=== PATIENT | female | born 1940 | race Caucasian/White ===

== ENCOUNTER 2016-10-07 20:03 | Inpatient (IN) | payer OTHER ==
[~2016-10-07] VITALS: Ht 170.2 cm; Wt 74.3 kg
[~2016-10-07 20:03] MED LIST: ADVAIR 250/501 DISK IH; ALPRAZOLAM0.25 MG PO; Azulfidine PO; CALAN SR,COVER240 MG PO; CEFTIN500 MG PO; COUMADIN,JANTOVE2 MG PO; COUMADIN2 MG PO; COUMADIN3 MG PO; COUMADIN4 MG PO; CYANOCOBALAM1000 MCG PO; DIGITEK250 MC2 PO; ENBREL50 MG/1 ML SC; FEROSUL325 MG PO; FLOVENT 22120 INHALA IH; FLUOXETINE HCL20 MG PO; FOLIC ACID1 MG PO; FOLVITE0.5 MG PO; Folvite PO; LANOXIN,DIG0.0625 MG PO; LANOXIN250 MCG PO; LOVENOX100 MG/1 M SC; Lanoxin,Digitek PO; Lopressor PO; METHOTREXATE2.5 MG PO; METOPROLOL SUCC25 MG PO; METOPROLOL TART25 MG PO; MIRALAX17 GM PO; OMEPRAZOLE20 MG PO; OMEPRAZOLE40 M1 PO; OXECTA7.5 MG PO; OXYCODONE HCL5 M1 PO; OXYCODONE10 MG PO; PANTOPRAZOLE SO40 MG PO; PLAQUENIL200 MG PO; PREDNISONE1 MG PO; PREDNISONE5 MG PO; PRILOSEC20 MG PO; PRILOSEC40 MG PO; PROZAC40 MG PO; PROzac PO; Plaquenil PO; Protonix PO; Proventil,Ventolin H IH; ROXICODONE5 MG PO; SIMVASTATIN10 M1 PO; SIMVASTATIN20 MG PO; SUCRALFATE1 GM/10 ML PO; SULFASALAZINE500 MG PO; SULFAZINE500 MG PO; SUPER B WITH V1 EACH; Tylenol Regular Stre PO; VENTOLIN HFA18 GM IH; VERAPAMIL ER200 MG PO; VERAPAMIL HCL240 MG PO; VERELAN 180 MG180 MG PO; VITAMIN B-122500 MCG SL; VITAMIN B12-FO1 EACH PO; VITAMIN D2000 INTUN PO; VITAMIN D2000 UNIT PO; VITAMIN D32000 UNI1 PO; Vitamin D PO; WARFARIN SODIUM1 MG PO; WARFARIN SODIUM2 MG PO; WARFARIN SODIUM4 MG PO; XANAX0.5 MG PO; Xanax PO; ZOCOR20 MG PO; ZOLOFT50 MG PO; Zocor PO; [UNRECOGNIZED DRUG - OTHER] TP; advair; metoprolol; oxyCODONE PO; predniSONE PO; warfarin
[2016-10-07 20:34] LABS: EOSINOPHIL (%) 0.7 % (0-5); HEMATOCRIT 39.2 % (36.0-46.0); IMMATURE GRANULOCYTE (%) 0.2 % (0.0-0.7); INSTRUMENT ABS NEUTROPHIL CT 3.9 K/uL; LYMPHOCYTE COUNT 1.4 K/uL (1.0-2.8); MCH 26.3 PG (29.0-34.0); MCHC 31.1 G/DL (30.0-36.0); MCV 84.5 FL (83-99); MEAN PLAT.VOLUME 9.8 uM^3 (9.5-12.4); MONOCYTE (%) 6.3 % (3-12); MONOCYTE COUNT 0.4 K/uL (0-0.8); NEUTROPHIL (%) 68.6 % (45-76); NEUTROPHIL COUNT 3.9 K/uL (1.8-6.4); PLATELET COUNT 224 K/uL (156-360); RBC DIS.WIDTH-CV 14.8 % (11.8-14.6); RBC DIS.WIDTH-SD 45.2 % (39-53); RED BLOOD COUNT 4.64 M/uL (3.80-5.20); WHITE BLOOD COUNT 5.7 K/uL (4.1-10.2)
[2016-10-07 20:45] LABS: INTER. NORMALIZED RATIO 2.7; PROTHROMBIN TIME 31.2 SEC (10.2-12.9)
[2016-10-07 20:46] LABS: CHLORIDE 105 mEq/L (99-109); POTASSIUM 5.2 mEq/L (3.7-5.4); SODIUM 137 mEq/L (136-147)
[2016-10-07 20:48] LABS: GLUCOSE 147 mg/dL (70-99)
[2016-10-07 20:49] LABS: ANION GAP 12 MEQ/L (2-14)
[2016-10-07 20:50] LABS: TOTAL BILIRUBIN 0.4 mg/dL (0.0-1.0)
[2016-10-07 20:52] LABS: ALKALINE PHOSPHATASE 120 IU/L (3-129); GFR ESTIMATE (CALCULATED) > 59 mL/min/
[2016-10-07 20:53] LABS: UREA NITROGEN (BUN) 11 mg/dL (9-23)
[2016-10-07 20:57] LABS: TROP-I INTERPRETATION NEGATIVE; TROPONIN-I < 0.01 ng/mL (0.0-0.30)
[2016-10-07] MEDS ORDERED: COUMADIN2 MG PO (22:29)
[2016-10-07] MEDS ORDERED: AZITHROMYCIN250 MG1 PO (22:31)
[2016-10-07] MEDS ORDERED: VENTOLIN HFA18 GM IH (22:31)
[2016-10-07] MEDS ORDERED: PREDNISONE10 MG PO (22:31)
[2016-10-07] MEDS ORDERED: SYMBICORT60 INHALAT IH (22:31)
[2016-10-07] MEDS ORDERED: PROTONIX40 MG PO (22:32)
[2016-10-07] MEDS ORDERED: [UNRECOGNIZED DRUG - OTHER] (22:32)
[2016-10-07] MEDS ORDERED: LOSARTAN-HCTZ1 EAC1 PO (22:33)
[2016-10-07] MEDS ORDERED: ENBREL50 MG/1 ML SC (22:33)
[2016-10-07] MEDS ORDERED: PERCOCET 10/1 TABLET PO (22:33)
[2016-10-08] VITALS (7 sets, daily range): BP systolic 126–174; BP diastolic 78–100
[2016-10-08 02:48] LABS: TROP-I INTERPRETATION NEGATIVE; TROPONIN-I < 0.01 ng/mL (0.0-0.30)
[2016-10-08 08:50] LABS: TROP-I INTERPRETATION NEGATIVE; TROPONIN-I < 0.01 ng/mL (0.0-0.30)
[2016-10-08 09:01] LABS: ANION GAP 7 MEQ/L (2-14); CHLORIDE 106 MEQ/L (99-109); POTASSIUM 4.9 MEQ/L (3.7-5.4); SAMPLE HEMOLYSIS CHECK 1; SAMPLE ICTERIC CHECK 0; SAMPLE LIPEMIA CHECK 0; SODIUM 139 MEQ/L (136-147)
[2016-10-08 09:07] LABS: GFR ESTIMATE (CALCULATED) > 59 mL/min/; UREA NITROGEN (BUN) 10 mg/dL (9-23)
[2016-10-08 09:09] LABS: GLUCOSE 107 mg/dL (70-99)
[2016-10-08 09:44] LABS: INTER. NORMALIZED RATIO 2.6; PROTHROMBIN TIME 29.3 SEC (10.2-12.9)
[2016-10-09 04:00] VITALS: BP 164/93
[2016-10-09 05:59] LABS: INTER. NORMALIZED RATIO 2.7
[2016-10-09 07:40] VITALS: BP 186/93
[2016-10-09 11:14] VITALS: BP 147/89
[2016-10-09] MEDS ORDERED: METOPROLOL SUC100 MG PO (12:50)
[2016-10-09] MEDS ORDERED: CARDIZEM CD,CA240 MG PO (12:51)
[2016-10-09] MEDS ORDERED: TYLENOL REGULA325 MG PO (12:51)
[2016-10-09] MEDS ORDERED: DIOVAN160 MG PO (12:53)
== END 2016-10-09 14:30 | disposition home or self-care (01) | DRG 310 ==
LOC: EME 20:03 → EDOF 23:30 → 4EAST 23:30 → ENRESERV 23:43 → 4EAST 10-08 00:38
PROVIDERS: Emergency Medicine; Family Medicine Sports Medicine
DX: I48.2 Chronic atrial fibrillation (principal); R13.10 Dysphagia, unspecified; K22.2 Esophageal obstruction; J44.9 Chronic obstructive pulmonary disease, unspecified; I27.2 Other secondary pulmonary hypertension; I25.10 Atherosclerotic heart disease of native coronary artery without angina pectoris; E78.5 Hyperlipidemia, unspecified; M06.9 Rheumatoid arthritis, unspecified; I10 Essential (primary) hypertension; F41.9 Anxiety disorder, unspecified; E11.9 Type 2 diabetes mellitus without complications; K21.9 Gastro-esophageal reflux disease without esophagitis; Z79.01 Long term (current) use of anticoagulants; R09.02 Hypoxemia; I25.2 Old myocardial infarction; Z87.891 Personal history of nicotine dependence
CPT/HCPCS: 71010; 80048; 80053; 83880; 84484; 85025; 85610; 93005; 99202; 99281; 99285; J0360; J7050; J7512

== ENCOUNTER 2017-01-15 11:58 | Emergency (ER) | payer OTHER ==
[~2017-01-15] VITALS: Ht 170.2 cm; Wt 74.7 kg
[~2017-01-15 11:58] MED LIST changes: +AZITHROMYCIN250 MG1 PO; +CARDIZEM CD,CA240 MG PO; +DIOVAN160 MG PO; +LOSARTAN-HCTZ1 EAC1 PO; +METOPROLOL SUC100 MG PO; +PERCOCET 10/1 TABLET PO; +PREDNISONE10 MG PO; +PROTONIX40 MG PO; +SYMBICORT60 INHALAT IH; +TYLENOL REGULA325 MG PO; +[UNRECOGNIZED DRUG - OTHER]
[2017-01-15] MEDS ORDERED: PLAQUENIL200 MG PO (13:19)
[2017-01-15] MEDS ORDERED: METOPROLOL SUCC50 MG PO (13:22)
[2017-01-15] MEDS ORDERED: CLONAZEPAM0.5 MG PO (13:27)
[2017-01-15] MEDS ORDERED: ROBAXIN500 MG PO (13:28)
[2017-01-15] MEDS ORDERED: PROZAC20 MG PO (13:28)
[2017-01-15 14:11] LABS: HEMATOCRIT 36.4 % (36.0-46.0); MCH 27.9 PG (29.0-34.0); MCHC 31.6 G/DL (30.0-36.0); MCV 88.3 FL (83-99); PLATELET COUNT 213 K/uL (156-360); RBC DIS.WIDTH-CV 15.9 % (11.8-14.6); RBC DIS.WIDTH-SD 51.6 % (39-53); RED BLOOD COUNT 4.12 M/uL (3.80-5.20); WHITE BLOOD COUNT 8.6 K/uL (4.1-10.2)
[2017-01-15 14:20] LABS: D-DIMER ELISA < 150.00 ng/mLDDU (<230)
[2017-01-15 14:21] LABS: CHLORIDE 103 mEq/L (99-109); POTASSIUM 4.4 mEq/L (3.7-5.4); SODIUM 135 mEq/L (136-147)
[2017-01-15 14:23] LABS: GLUCOSE 93 mg/dL (70-99)
[2017-01-15 14:25] LABS: ANION GAP 7 MEQ/L (2-14)
[2017-01-15 14:27] LABS: GFR ESTIMATE (CALCULATED) > 59 mL/min/
[2017-01-15 14:28] LABS: UREA NITROGEN (BUN) 12 mg/dL (9-23)
[2017-01-15 14:33] LABS: TROP-I INTERPRETATION NEGATIVE; TROPONIN-I < 0.01 ng/mL (0.0-0.30)
[2017-01-15] MEDS ORDERED: LIDODERM 5% P1 PATCH TD (14:57)
[2017-01-15 15:20] VITALS: BP 108/83
== END 2017-01-15 15:20 | disposition home or self-care (01) ==
LOC: EME 11:58
PROVIDERS: Nurse Practitioner Family
DX: R09.1 Pleurisy (principal); M06.9 Rheumatoid arthritis, unspecified; J44.9 Chronic obstructive pulmonary disease, unspecified; F32.9 Major depressive disorder, single episode, unspecified; I25.2 Old myocardial infarction; F41.9 Anxiety disorder, unspecified; Z88.8 Allergy status to other drugs, medicaments and biological substances; Z87.891 Personal history of nicotine dependence
CPT/HCPCS: 71020; 80048; 84484; 85027; 85379; 93005; 99281; 99284

== ENCOUNTER 2017-07-28 12:05 | Emergency (ER) | payer OTHER ==
[~2017-07-28] VITALS: Ht 172.7 cm; Wt 81.5 kg
[~2017-07-28 12:05] MED LIST changes: +CLONAZEPAM0.5 MG PO; +LIDODERM 5% P1 PATCH TD; +METOPROLOL SUCC50 MG PO; +PROZAC20 MG PO; +ROBAXIN500 MG PO
[2017-07-28 12:41] LABS: HEMATOCRIT 41.2 % (36.0-46.0); HEMOGLOBIN 13.3 G/DL (11.9-15.5); MCH 28.9 PG (29.0-34.0); MCHC 32.3 G/DL (30.0-36.0); MCV 89.6 FL (83-99); PLATELET COUNT 278 K/uL (156-360); RBC DIS.WIDTH-CV 14.8 % (11.8-14.6); RBC DIS.WIDTH-SD 48.3 % (39-53); WHITE BLOOD COUNT 12.9 K/uL (4.1-10.2)
[2017-07-28 13:16] LABS: TROP-I INTERPRETATION NEGATIVE; TROPONIN-I < 0.01 ng/mL (0.0-0.30)
[2017-07-28 13:24] LABS: CHLORIDE 104 MEQ/L (99-109); CREATININE 0.9 MG/DL (0.6-1.3); GFR ESTIMATE (CALCULATED) > 59 mL/min/; GLUCOSE 110 mg/dL (70-99); POTASSIUM 4.4 MEQ/L (3.7-5.4); SODIUM 140 MEQ/L (136-147); UREA NITROGEN (BUN) 14 mg/dL (9-23)
[2017-07-28 14:00] LABS: PTT 39.3 SEC (25-37)
[2017-07-28 14:05] LABS: INTER. NORMALIZED RATIO 3.5
[2017-07-28 15:49] VITALS: BP 153/77
== END 2017-07-28 15:59 | disposition home or self-care (01) ==
LOC: EME 12:05
DX: S22.42XA Multiple fractures of ribs, left side, initial encounter for closed fracture (principal); W01.198A Fall on same level from slipping, tripping and stumbling with subsequent striking against other object, initial encounter; Y92.007 Garden or yard of unspecified non-institutional (private) residence as the place of occurrence of the external cause; I48.91 Unspecified atrial fibrillation; R91.1 Solitary pulmonary nodule; I70.0 Atherosclerosis of aorta; I25.10 Atherosclerotic heart disease of native coronary artery without angina pectoris; J44.9 Chronic obstructive pulmonary disease, unspecified; M06.9 Rheumatoid arthritis, unspecified; I25.2 Old myocardial infarction; F41.9 Anxiety disorder, unspecified; F32.9 Major depressive disorder, single episode, unspecified; Z79.01 Long term (current) use of anticoagulants; Z79.891 Long term (current) use of opiate analgesic; Z87.891 Personal history of nicotine dependence; Z85.9 Personal history of malignant neoplasm, unspecified; Z88.8 Allergy status to other drugs, medicaments and biological substances
CPT/HCPCS: 71046; 71275; 74177; 80048; 84484; 85027; 85610; 85730; 93005; 99281; 99284; J2405; J3010; J7030